=== PATIENT | female | born 1965 | race Caucasian/White ===

== ENCOUNTER 2016-12-16 18:36 | Emergency (ER) | payer MEDICARE, MEDICAID ==
--- NOTE | 2016-12-16 19:00 | Emergency Department Record ---
History of Present Illness - General Chief Complaint: Headache Migraine Stated Complaint: WOODS Time Seen by Provider: 12/16/16 18:56 Source: Patient Mode of Arrival: Ambulatory Limitations: No limitations - History of Present Illness Initial Comments: 51 yo female presents to ED with a 5-day history of "migraine headache", reports similar symptoms previously related to migraine headaches. Patient denies fevers, chills, or neck stiffness symptoms, and does not take blood thinner medications. Patient reports generalized weakness for 2-3 days, denies any focal weakness symptoms. MD Complaint: Headache Onset/Timin -: Days(s) Onset Description: Gradual Location: Diffuse Severity scale (1-10): 10 Quality: Similar to previous headaches Consistency: Constant Improves With: Nothing Worsens With: Light, Movement of head/neck, Noise Associated Symptoms: Nausea, Photophobia, Sensitivity to sound, Vomiting Treatments Prior to Arrival: Acetaminophen - Related Data Home Medications Medication Instructions Recorded Confirmed Last Taken No Home Med [NO HOME MEDS] 12/16/16 12/16/16 Unknown Allergies Allergy/AdvReac Type Severity Reaction Status Date / Time aspirin [ASPIRIN] Allergy Severe ANAPHYLAXIS Verified 07/15/15 14:09 caffeine [From CAFERGOT] Allergy Intermediate SHORTNESS Verified 07/15/15 14:09 OF BREATH cimetidine [From Tagamet] Allergy Intermediate NAUSEA Verified 07/15/15 14:09 cimetidine HCl [From Tagamet] Allergy Intermediate NAUSEA Verified 07/15/15 14: 09 dichloralphenazone Allergy Intermediate SHORTNESS Verified 07/15/15 14:09 [From MIDRIN] OF BREATH ergotamine tartrate Allergy Intermediate SHORTNESS Verified 07/15/15 14:09 [From CAFERGOT] OF BREATH glimepiride [From Amaryl] Allergy Intermediate DILLUSIONAL Verified 07/15/15 14: 09 ibuprofen [From MOTRIN] Allergy Intermediate SHORTNESS Verified 07/15/15 14:09 OF BREATH isometheptene mucate Allergy Intermediate SHORTNESS Verified 07/15/15 14:09 [From MIDRIN] OF BREATH ketorolac tromethamine Allergy Intermediate DIFFICULTY Verified 07/15/15 14:09 [From Toradol] BREATHING naproxen [From NAPROSYN] Allergy Intermediate SHORTNESS Verified 07/15/15 14:09 OF BREATH prochlorperazine edisylate Allergy Intermediate VOMITING Verified 07/15/15 14:09 [From Compazine] prochlorperazine maleate Allergy Intermediate VOMITING Verified 07/15/15 14:09 [From Compazine] propranolol HCl Allergy Intermediate SHORTNESS Verified 07/15/15 14:09 [From INDERAL] OF BREATH ranolazine [From Ranexa] Allergy Intermediate NAUSEA Verified 07/15/15 14:09 Sulfa (Sulfonamide Allergy Intermediate SHORTNESS Verified 07/15/15 14:09 Antibiotics) OF BREATH [SULFA (SULFONAMIDE ANTIBIOTICS)] sumatriptan [From IMITREX] Allergy Intermediate SHORTNESS Verified 07/15/15 14: 09 OF BREATH sumatriptan succinate Allergy Intermediate SHORTNESS Verified 07/15/15 14:09 [From IMITREX] OF BREATH tramadol HCl [From ULTRAM] Allergy Intermediate SHORTNESS Verified 07/15/15 14: 09 OF BREATH rizatriptan benzoate Allergy Unknown SHORTNESS Verified 07/15/15 14:09 [From MAXALT] OF BREATH duloxetine HCl AdvReac NAUSEA Verified 11/15/15 23:31 [From Cymbalta] Travel Screening - Travel/Exposure Within Last 30 Days Have you traveled within the last 30 days?: No - Travel Symptoms Symptom Screening: None Review of Systems Constitutional: Denies: Chills, Fever, Malaise, Night sweats Eyes: Denies: Eye discharge, Eye pain ENT: Denies: Congestion, Ear pain, Epistaxis Respiratory: Denies: Cough, Dyspnea Cardiovascular: Denies: Chest pain, Dyspnea on exertion Endocrine: Denies: Fatigue, Heat or cold intolerance Gastrointestinal: Denies: Abdominal pain, Nausea, Vomiting Genitourinary: Denies: Incontinence, Retention Musculoskeletal: Denies: Arthralgia, Back pain, Gout Skin: Denies: Bruising, Change in color Neurological: Reports: Headache. Denies: Confusion Psychiatric: Denies: Anxiety Hematological/Lymphatic: Denies: Anemia, Blood Clots Past Medical History - SOCIAL HISTORY Smoking Status: Light tobacco smoker (<10/day) - RESPIRATORY Hx Respiratory Disorders: Yes Hx Asthma: Yes Hx COPD: Yes - CARDIOVASCULAR Hx Cardio Disorders: Yes Hx Abnormal EKG: Yes Hx Chest Pain: Yes Hx Heart Attack: Yes (2011) - NEURO Hx Neuro Disorders: Yes Hx Headaches: Yes - GI Hx GI Disorders: Yes Hx Diverticulitis: Yes Hx Irritable Bowel: Yes Comment:: COLITIS - Hx Genitourinary Disorders: Yes Hx Kidney Stones: Yes (HX Kidney failure) Hx Renal Disease: Yes Hx UTI: Yes - ENDOCRINE Hx Endocrine Disorders: Yes Hx Diabetes: Yes (Type 2 NO MEDS lost weight) - MUSCULOSKELETAL Hx Musculoskeletal Disorders: Yes Hx Back Injury: Yes - PSYCH Hx Psych Problems: Yes Hx Anxiety: Yes Hx Depression: Yes Comment:: BIPOLAR - HEMATOLOGY/ONCOLOGY Hx Hematology/Oncology Disorders: Yes Hx Anemia: Yes Family Medical History Any Significant Family History?: Yes Hx Anxiety: Mother Hx Cancer: Father, Mother, Grandparents Hx Depression: Mother, Brother/Sister, Grandparents Hx Heart Disease: Grandparents Hx Kidney Disease: Grandparents Hx Stroke: Grandparents Physical Exam - General General Appearance: Alert, Oriented x3, Cooperative, Mild distress Limitations: No limitations - Head Head exam: Atraumatic, Normocephalic, Normal inspection Head exam detail: negative: Abrasion, Contusion, General tenderness, Hematoma, Laceration - Eye Eye exam: Normal appearance. negative: Conjunctival injection, Periorbital swelling, Periorbital tenderness, Scleral icterus - ENT Ear exam: negative: Auricular hematoma, Auricular trauma Nasal Exam: negative: Active bleeding, Discharge, Dried blood, Foreign body Mouth exam: negative: Drooling, Laceration, Muffled voice, Tongue elevation - Neck Neck exam: Normal inspection. negative: Meningismus, Tenderness - Respiratory Respiratory exam: Normal lung sounds bilaterally. negative: Respiratory distress, Rhonchi, Stridor, Wheezes - Cardiovascular Cardiovascular Exam: Regular rate, Normal rhythm, Normal heart sounds - GI/Abdominal GI/Abdominal exam: Soft. negative: Rebound, Rigid, Tenderness - Rectal Rectal exam: Deferred - exam: Deferred - Extremities Extremities exam: Normal inspection. negative: Pedal edema, Tenderness - Back Back exam: Denies: CVA tenderness (R), CVA tenderness (L) - Neurological Neurological exam: Alert, Normal gait, Oriented X3 - Psychiatric Psychiatric exam: Normal affect, Normal mood - Skin Skin exam: Normal color. negative: Abrasion Type of lesion: negative: abrasion Course Vital Signs 12/16/16 18:54 Temperature 98.5 F Pulse Rate 92 H Respiratory 18 Rate Blood Pressure 139/82 Pulse Ox 97 - Reevaluation(s) Reevaluation #1: 12/16/16 20:10 Patient reassessed and reports improvement in her symptoms, and the patient appears stable for discharge at this time. Disposition Disposition: Discharge Clinical Impression: Headache Qualifiers: Headache type: unspecified Headache chronicity pattern: acute headache Intractability: not intractable Qualified Code(s): R51 - Headache Disposition: Home, Self-Care Condition: (2) Stable Instructions: Acute Headache (ED) Additional Instructions: Return to ED if your symptoms worsen or if you have any concerns. Follow-up with your family doctor in 3-5 days as directed. Forms: Patient Portal Access Time of Disposition: 20:13
[2016-12-16] MEDS: METOCLOPRAMIDE HCL 10 MG/2 ML VIAL IVP ONE (19:14)
[2016-12-16] MEDS: 0.9 % SODIUM CHLORIDE 1000ML 1,000 ML IV SCH (19:14)
[2016-12-16] MEDS: DIPHENHYDRAMINE HCL IV 50 MG/ML VIAL IVP ONE (19:16)
== END 2016-12-16 20:39 | disposition home or self-care (01) ==
LOC: ER 18:36
DX: R51 Headache (principal); R11.2 Nausea with vomiting, unspecified; H53.149 Visual discomfort, unspecified
CPT/HCPCS: 96360; 96374; 96375; 99284; J1200; J2765; J7030